=== PATIENT | female | born 1935 | race Caucasian/White ===

== ENCOUNTER 2016-10-11 11:48 | Emergency (ER) | payer MEDICARE, OTHER ==
[~2016-10-11] VITALS: Ht 152.4 cm; Wt 60.0 kg
[~2016-10-11 11:48] MED LIST: METO25 PO; XARE20TA OR
[2016-10-11 12:14] VITALS: BP 121/64; PULSE 81; RESP 17; TEMP 98.8; O2SAT 94
--- NOTE | 2016-10-11 13:00 | PD ---
HPI Chief Complaint: Musculoskeletal Complaint Time Seen by Provider: 12:44 Travel History International Travel<30 days: No Contact w/Intl Traveler<30days: No Traveled to known affect area: No History of Present Illness HPI This patient complains of back pain. The patient was seen and examined in the presence of the nurse. She's had chronic back pain for 3 months. Her primary physician in [place] saw her for this and obtained x-rays which showed arthritis. A few weeks ago she tripped over a step while carrying groceries and fell. She is not exactly sure how she landed. She's had 2 weeks of back pain worse than her typical since the fall. No muscle weakness or sensory loss. No urinary incontinence or retention. Denies fever. Back pain is improved by resting. Severity is moderate. PFSH Past Medical History Hx Anticoagulant Therapy: Yes Arthritis: Yes (HIP, BACK) Asthma: No Autoimmune Disease: No Anxiety: No Depression: No Heart Rhythm Problems: Yes Cancer: No Cardiovascular Problems: No High Cholesterol: No Chemotherapy: No Chest Pain: Yes ("R/T PAST ANXIETY PROBLEMS") Congestive Heart Failure: No COPD: No Cerebrovascular Accident: No Diabetes: No Diminished Hearing: No Endocrine: No GERD: Yes Genitourinary: No Headaches: Yes ("SOMETIMES") Hiatal Hernia: No Hypertension: Yes Immune Disorder: No Implanted Vascular Access Dvce: No Kidney Stones: No Musculoskeletal: Yes (SPINAL STENOSIS) Neurologic: No Psychiatric: No Reproductive: No Respiratory: No Migraines: No Radiation Therapy: No Renal Failure: No Seizures: No Sickle Cell Disease: No Thyroid Disease: No Ulcer: No Tetanus Vaccination: < 5 Years Influenza Vaccination: Yes PNEUMOCCOCAL Vaccine (Year): 1 ?: Not Menopausal: Yes Past Surgical History Abdominal Surgery: Yes (,HYSTERECTOMY) AICD: No Arteriovenous Shunt: No Cardiac Surgery: Yes (HOLE IN HEART) Cholecystectomy: Yes Ear Surgery: No Endocrine Surgery: No Eye Surgery: No Genitourinary Surgery: No Gynecologic Surgery: Yes (HYSTERECTOMY (PARTIAL)) Hysterectomy: Yes (partial) Insulin Pump: No Joint Replacement: No Oral Surgery: No Pacemaker: No Thoracic Surgery: No Other Surgery: Yes (nose surgery) Social History Alcohol Use: No Tobacco Use: No Substance Use: No Allergies-Medications (Allergen,Severity, Reaction): Coded Allergies: No Known Allergies (Unverified , 10/11/16) Reported Meds & Prescriptions Reported Meds & Active Scripts Active Tylenol-Codeine #3 (Acetaminophen-Codeine) 300-30 mg Tab 1 Tab PO Q6HR PRN Reported Ranitidine (Ranitidine HCl) 150 Mg Tab 150 Mg PO BID Lasix (Furosemide) 40 Mg Tab 40 Mg PO -- Sertraline (Sertraline HCl) 25 Mg Tab 25 Mg PO DAILY Protonix (Pantoprazole Sodium) 40 Mg Tab 40 Mg PO BID Eliquis (Apixaban) 5 Mg Tab 5 Mg PO BID Cartia Xt (Diltiazem ER 24 HR) 180 Mg Caper 180 Mg PO DAILY Amiodarone (Amiodarone HCl) 200 Mg Tab 200 Mg PO DAILY Review of Systems General / Constitutional: No: Fever Eyes: No: Visual changes HENT: No: Headaches Cardiovascular: No: Chest Pain or Discomfort Respiratory: No: Shortness of Breath Gastrointestinal: No: Abdominal Pain Genitourinary: No: Dysuria Musculoskeletal: Positive: Pain Skin: No Rash Neurologic: No: Weakness Psychiatric: No: Depression Endocrine: No: Polydipsia Hematologic/Lymphatic: No: Easy Bruising Physical Exam Narrative GENERAL: Well-nourished, well-developed patient with back pain. SKIN: Warm and dry. HEAD: Atraumatic. Normocephalic. EYES: Pupils equal and round. No scleral icterus. No injection or drainage. ENT: No nasal bleeding or discharge. Mucous membranes pink and moist. NECK: Trachea midline. No JVD. CARDIOVASCULAR: Regular rate and rhythm. No murmur appreciated. RESPIRATORY: No accessory muscle use. Clear to auscultation. Breath sounds equal bilaterally. GASTROINTESTINAL: Abdomen soft, non-tender, nondistended. Hepatic and splenic margins not palpable. MUSCULOSKELETAL: No obvious deformities. No clubbing. No cyanosis. No edema. Back examination shows no midline tenderness. There is no tailbone tenderness. No bruising or swelling. Straight leg raise and cross straight leg raise negative NEUROLOGICAL: Awake and alert. No obvious cranial nerve deficits. Motor grossly within normal limits. Normal speech. Sensation intact PSYCHIATRIC: Appropriate mood and affect; insight and judgment normal. Data Data Last Documented VS Vital Signs Date Time Temp Pulse Resp B/P Pulse Ox O2 Delivery O2 Flow Rate FiO2 10/11/16 14:54 73 17 129/68 94 Room Air 10/11/16 12:14 98.8 Orders Spine, Lumbar - Ltd (Ap & Lat) (10/11/16 ) MDM Medical Decision Making Medical Screen Exam Complete: Yes Emergency Medical Condition: Yes Medical Record Reviewed: Yes Differential Diagnosis Compression fracture, arthritis, lumbar strain Narrative Course I have reviewed the patient's electronic medical record. Patient is neurologically intact. There are no objective findings on exam. I reviewed her lumbar spine x-rays which show no obvious compression fracture. There is some scoliosis changes as well as arthritic change. Patient has a flare of a chronic condition going on for 3 months. Recommend she follow with primary care to start given that she is going to be here for 4 months Wrote her some Tylenol 3 to use as needed for symptom relief Diagnosis Primary Impression: Back pain at L4-L5 level Additional Instructions: The patient was warned about potential sedation for the medications they will receive on prescription. The patient was advised to follow up with their physician and return if they worsen. Med/Other Pt SpecificInfo: Prescription(s) given Scripts Acetaminophen-Codeine (Tylenol-Codeine #3)300-30 mg Tab1 Tab PO Q6HR PRN (PAIN) #25 TAB Ref 0 Prov:Devon Jaramillo MD 10/11/16 Disposition: 01 DISCHARGE HOME Condition: Stable Devon Jaramillo MD Oct 11, 2016 13:00
[2016-10-11] MEDS ORDERED: PROT40TA PO (13:05)
[2016-10-11] MEDS ORDERED: CART180C PO (13:05)
[2016-10-11] MEDS ORDERED: RANI150T PO (13:05)
[2016-10-11] MEDS ORDERED: APIX5TAB PO (13:05)
[2016-10-11] MEDS ORDERED: FURO1TAB60 PO (13:05)
[2016-10-11] MEDS ORDERED: AMIO200T PO (13:05)
[2016-10-11] MEDS ORDERED: SERT25TA83 PO (13:05)
[2016-10-11 14:54] VITALS: BP 129/68; PULSE 73; RESP 17; O2SAT 94
[2016-10-11] MEDS ORDERED: TYLETAB34 PO (14:54)
--- NOTE | 2016-10-11 15:02 | RADHPO ---
EXAM DATE/TIME: 10/11/2016 13:13 [facility] COMPARISON: No previous studies available for comparison. INDICATIONS: Fall, Low back pain. MEDICAL HISTORY: Arthritis. SURGICAL HISTORY: None. ENCOUNTER: Initial ACUITY: 1 week PAIN SCORE: 10/10 LOCATION: Low back FINDINGS: There is sclerosis and concavity to the superior aspect of L1. There also appears to be some scleros is at the inferior aspect of T12. There is some concavity to the inferior aspect of the L3 vertebral body. There is disc space narrowing and end plate sclerosis and osteophytes at the L4-5 level. The re is lower lumbar facet hypertrophy. Overall there is a dextrocurvature of the lumbar spine. The s acroiliac joints are intact. Patient is status post cholecystectomy. Pacer leads are seen over the heart. CONCLUSION: Concavity to the superior aspect of L1 and inferior aspect of L3 which could represent some mild comp ression. There also appears to be degenerative change at the T12-L1 and L4-5 levels. Fabián Degroot MD on October 11, 2016 at 14:53 Board Certified Radiologist. This report was verified electronically.
[2016-11-30] MEDS ORDERED: LUMBAR BACK BRA1 MIS (15:54)
[2016-11-30] MEDS ORDERED: HYDR-3516 PO (15:59)
[2017-01-20] MEDS ORDERED: HYDR-3516 PO (16:37)
== END 2016-10-11 15:07 | disposition home or self-care (01) ==
LOC: PHED 11:48
DX: M54.9 Dorsalgia, unspecified (principal); Z79.01 Long term (current) use of anticoagulants; I10 Essential (primary) hypertension
CPT/HCPCS: 72100; 99283

== ENCOUNTER 2016-11-29 10:08 | Emergency (ER) | payer MEDICARE ==
[~2016-11-29] VITALS: Ht 152.4 cm; Wt 59.4 kg
[~2016-11-29 10:08] MED LIST changes: +AMIO200T PO; +APIX5TAB PO; +CART180C PO; +FURO1TAB60 PO; -METO25 PO; +PROT40TA PO; +RANI150T PO; +SERT25TA83 PO; +TYLETAB34 PO; -XARE20TA OR
[2016-11-29 10:17] VITALS: BP 148/72; PULSE 68; RESP 20; TEMP 98.3; O2SAT 95
[2016-11-29] MEDS ORDERED: GABA100C4 PO (10:54)
[2016-11-29] MEDS ORDERED: MORPHINE SULFATE 4 MG/ML INJ IM ONE (11:15)
--- NOTE | 2016-11-29 11:15 | PD ---
HPI . Back pain Chief Complaint: Musculoskeletal Complaint Time Seen by Provider: 11:05 Travel History International Travel<30 days: No Contact w/Intl Traveler<30days: No Traveled to known affect area: No History of Present Illness HPI Patient presents with acute exacerbation of chronic low back pain. She had a trip and fall a week ago and landed on her buttocks. Since then, she has had increased low back pain. She reportedly had significant bruising following the fall but the bruising has now subsided. Pain is exacerbated by movement. The patient is from [place]. PFSH Past Medical History Hx Anticoagulant Therapy: Yes (ELIQUIS) Arthritis: Yes (HIP, BACK) Asthma: No Autoimmune Disease: No Anxiety: No Depression: No Heart Rhythm Problems: Yes Cancer: No Cardiovascular Problems: Yes (PACER, HEART REPAIR) High Cholesterol: No Chemotherapy: No Chest Pain: Yes ("R/T PAST ANXIETY PROBLEMS") Congestive Heart Failure: Yes COPD: No Cerebrovascular Accident: No Diabetes: No Diminished Hearing: No Endocrine: No GERD: Yes Genitourinary: No Headaches: Yes ("SOMETIMES") Hiatal Hernia: No Hypertension: Yes Immune Disorder: No Implanted Vascular Access Dvce: No Kidney Stones: No Musculoskeletal: Yes (SPINAL STENOSIS) Neurologic: No Psychiatric: No Reproductive: No Respiratory: No Migraines: No Radiation Therapy: No Renal Failure: No Seizures: No Sickle Cell Disease: No Thyroid Disease: No Ulcer: No Tetanus Vaccination: Unknown Influenza Vaccination: Yes PNEUMOCCOCAL Vaccine (Year): 1 ?: Not Menopausal: Yes Past Surgical History Abdominal Surgery: Yes (,HYSTERECTOMY) AICD: No Arteriovenous Shunt: No Cardiac Surgery: Yes (HOLE IN HEART) Cholecystectomy: Yes Ear Surgery: No Endocrine Surgery: No Eye Surgery: No Genitourinary Surgery: No Gynecologic Surgery: Yes (HYSTERECTOMY (PARTIAL)) Hysterectomy: Yes (partial) Insulin Pump: No Joint Replacement: No Oral Surgery: No Pacemaker: No Thoracic Surgery: No Other Surgery: Yes (nose surgery,pacemaker ) Social History Alcohol Use: No Tobacco Use: No Substance Use: No Allergies-Medications (Allergen,Severity, Reaction): Coded Allergies: No Known Allergies (Unverified , 11/29/16) Reported Meds & Prescriptions Reported Meds & Active Scripts Active Reported Gabapentin 100 Mg Cap 200 Mg PO TID Lasix (Furosemide) 40 Mg Tab 40 Mg PO M-W-F Sertraline (Sertraline HCl) 25 Mg Tab 25 Mg PO DAILY Protonix (Pantoprazole Sodium) 40 Mg Tab 40 Mg PO BID Eliquis (Apixaban) 5 Mg Tab 5 Mg PO BID Amiodarone (Amiodarone HCl) 200 Mg Tab 200 Mg PO DAILY Review of Systems Except as stated in HPI: all other systems reviewed are Neg Musculoskeletal: Positive: Limited ROM, Pain (low back pain) Skin: Positive Change in Pigmentation Neurologic: No: Paresthesia, Incontinence Physical Exam Narrative GENERAL: Awake and alert and in no acute distress. SKIN: Warm and dry. No bruising noted. CARDIOVASCULAR: Regular rate and rhythm. RESPIRATORY: No accessory muscle use. MUSCULOSKELETAL: No obvious deformities. No edema. Tender to percussion lower lumbar area. NEUROLOGICAL: Awake and alert. No obvious cranial nerve deficits. Motor grossly within normal limits. Normal speech. PSYCHIATRIC: Appropriate mood and affect; insight and judgment normal. Data Data Last Documented VS Vital Signs Date Time Temp Pulse Resp B/P Pulse Ox O2 Delivery O2 Flow Rate FiO2 11/29/16 12:11 70 16 143/70 97 Room Air 11/29/16 10:17 98.3 Orders Spine, Lumbar - Ltd (Ap & Lat) (11/29/16 11:05) Morphine Inj (Morphine Inj) (11/29/16 11:15) MDM Medical Decision Making Medical Screen Exam Complete: Yes Emergency Medical Condition: Yes Medical Record Reviewed: Yes (patient was seen here on 10/11 with very similar complaints. She had again suffered a fall causing increased back pain. She was given a prescription for Tylenol 3.) Differential Diagnosis Differential diagnosis includes but is not limited to muscular low back pain, DDD, spinal stenosis, epidural abscess, sciatica, kidney infection or stone. Narrative Course Patient presents complaining with increased chronic low back pain following a fall a week ago. An x-ray has been ordered to rule out possible fracture. Last Impressions Lumbar Spine X-Ray 11/29/16 1105 Signed Impressions: Service Date/Time: Tuesday, November 29, 2016 11:09 - CONCLUSION: 1. Mild loss of height of L3, representing a fracture of the lower endplate more pronounced on current study. MRI may be warranted to evaluate acuity. 2. Degenerative changes and osteopenia. Dimitri Espinoza MD The x-rays were independently viewed by me. The patient does not have any neurological symptoms. Diagnosis Primary Impression: Compression fracture of L3 lumbar vertebra Qualified Code: S32.030A - Compression fracture of L3 lumbar vertebra, closed , initial encounter Referrals: Jorge Lopez MD 3 days Patient Instructions: General Instructions, Narcotic given in the ED, Vertebral Compression Fracture (DC) Med/Other Pt SpecificInfo: Prescription(s) given Scripts Hydrocodone-Acetaminophen ([place])5-325 mg Tab1 Tab PO Q4H PRN (PAIN) #12 TAB Ref 0 Prov:Riana Harvey MD 11/29/16 Disposition: 01 DISCHARGE HOME Condition: Stable Riana Harvey MD Nov 29, 2016 11:15
--- NOTE | 2016-11-29 11:39 | RADHPO ---
EXAM DATE/TIME: 11/29/2016 11:09 [facility] COMPARISON: SPINE LUMBAR LTD (AP & LAT), October 11, 2016, 13:13. INDICATIONS : Lower back pain. MEDICAL HISTORY : None. SURGICAL HISTORY : None. ENCOUNTER: Initial ACUITY: 2 months PAIN SCORE: 9/10 LOCATION: Lumbar spine FINDINGS: Two view examination was performed. There are five non-rib bearing vertebral bodies. Mild loss of he ight L3 along the lower end plate. Diffuse degenerative changes. Osteopenia. CONCLUSION: 1. Mild loss of height of L3, representing a fracture of the lower endplate more pronounced on curren t study. MRI may be warranted to evaluate acuity. 2. Degenerative changes and osteopenia. Dimitri Espinoza MD on November 29, 2016 at 11:35 Board Certified Radiologist. This report was verified electronically.
[2016-11-29 12:11] VITALS: BP 143/70; PULSE 70; RESP 16; O2SAT 97
[2016-11-29] MEDS ORDERED: NORC5TAB PO (12:17)
[2016-11-30] MEDS ORDERED: LUMBAR BACK BRA1 MIS (15:54)
[2016-11-30] MEDS ORDERED: HYDR-3516 PO (15:59)
[2017-01-20] MEDS ORDERED: HYDR-3516 PO (16:37)
== END 2016-11-29 12:36 | disposition home or self-care (01) ==
LOC: PHEFT 10:08
DX: S32.030A Wedge compression fracture of third lumbar vertebra, initial encounter for closed fracture (principal); M54.5 Low back pain; G89.29 Other chronic pain; I10 Essential (primary) hypertension; Z79.01 Long term (current) use of anticoagulants; Z87.39 Personal history of other diseases of the musculoskeletal system and connective tissue; Z86.79 Personal history of other diseases of the circulatory system; Z87.19 Personal history of other diseases of the digestive system; W19.XXXA Unspecified fall, initial encounter
CPT/HCPCS: 72100; 96372; 99283; J2270